=== PATIENT | male | born 1965 | race Caucasian/White ===

== ENCOUNTER 2020-09-22 14:06 | Outpatient (CLI) | payer OTHER, SELFPAY ==
--- NOTE | ~2020-09-22 | XR_ITS ---
EXAMINATION: XR knee LT 2V DATE: 09/22/2020 14:27 INDICATION: Chronic left knee pain. TECHNIQUE: 2 views of left knee were obtained. COMPARISON: None. FINDINGS: Bone alignment is normal. No fracture. There is mild osteoarthritis of medial and patellofe moral compartments. There is a small knee joint effusion. IMPRESSION: 1. Mild left knee osteoarthritis. 2. Small left knee joint effusion. Reviewed, dictated and finalized at location A.
--- NOTE | ~2020-09-22 | XR_ITS ---
EXAMINATION: XR hand LT 2V DATE: 09/22/2020 14:27 INDICATION: Localized left hand swelling, mass and lump at the palmar aspect of the distal third and fourth metacarpals. TECHNIQUE: Posteroanterior and lateral views of the left hand were obtained. COMPARISON: None. FINDINGS: Alignment is normal. No fracture. Joint space narrowing at the third and fourth carpals and multiple interphalangeal joints. The joint space narrowing at the third and fourth metacarpophalangeal joints appears relatively uniform is an atypical distribution for osteoarthritis and suggests the possibilit y of inflammatory arthritis such as rheumatoid. No erosions or periosteal reaction. Soft tissues are unremarkable. No radiopaque foreign bodies. IMPRESSION: 1. Atypical distribution of relatively uniform joint space narrowing at the third and fourth metacarp ophalangeal joints which raises possibility of inflammatory arthritis such as rheumatoid. Reviewed, dictated and finalized at location A. IMPRESSION: 1. Atypical distribution of relatively uniform joint space narrowing at the thi rd and fourth metacarpophalangeal joints which raises possibility of inflammato ry arthritis such as rheumatoid.
== END 2020-09-22 14:07 | disposition home or self-care (01) ==
LOC: ANHIMG 14:13
PROVIDERS: PCP Family Medicine; Visit Provider Nurse Practitioner Family
DX: M25.462 Effusion, left knee (principal); M17.12 Unilateral primary osteoarthritis, left knee
CPT/HCPCS: 73120; 73560

== ENCOUNTER 2021-02-05 09:38 | Outpatient (CLI) | payer OTHER, SELFPAY ==
--- NOTE | ~2021-02-05 | MR_ITS ---
EXAMINATION: MR knee LT wo con DATE: 02/05/2021 10:47 INDICATION: Left knee pain. TECHNIQUE: Magnetic resonance imaging (MRI) of the left knee was performed without intravenous contra st. Sequences included axial PD-weighted FS FSE, coronal PD-weighted FSE and PD-weighted FS FSE, sagi ttal PD-weighted FSE, and sagittal T2-weighted FS FSE. COMPARISON: Left knee radiographs 09/22/2020 FINDINGS: Medial compartment: There is an undersurface horizontal tear of body and posterior horn of medial meniscus. There is cart ilage surface irregularity of femoral condyle and tibial condyle. Marginal osteophytes are noted. Lateral compartment: Lateral meniscus is normal. Lateral compartment cartilage is normal. There are tiny osteophytes. Patellofemoral compartment: There is shallow partial-thickness cartilage loss of patellar medial facet. There is deep partial thi ckness cartilage loss of central trochlea. Osteophytes are noted. Ligaments and tendons: The anterior and posterior cruciate ligaments are normal. Medial collateral ligament and lateral rosendo ateral ligament complex are intact. Patellar tendon is normal. Fluid: There is a small knee joint effusion. There is a moderate-sized Burns's cyst. IMPRESSION: 1. Moderate chondrosis of patellofemoral compartment and mild chondrosis of medial compartment. 2. Tear of medial meniscus. 3. Small knee joint effusion. 4. Moderate-sized Burns's cyst. Reviewed, dictated and finalized at location A. IMPRESSION: 1. Moderate chondrosis of patellofemoral compartment and mild chondrosis of med ial compartment. 2. Tear of medial meniscus. 3. Small knee joint effusion. 4. Moderate-sized Burns's cyst.
== END 2021-02-05 09:39 | disposition home or self-care (01) ==
PROVIDERS: PCP Family Medicine; Visit Provider Nurse Practitioner Family
DX: M25.462 Effusion, left knee (principal); R29.898 Other symptoms and signs involving the musculoskeletal system; S83.242A Other tear of medial meniscus, current injury, left knee, initial encounter; M71.22 Synovial cyst of popliteal space [Baker], left knee
CPT/HCPCS: 73721

== ENCOUNTER 2021-08-18 15:03 | Emergency (ER) | payer OTHER, SELFPAY ==
[2021-08-18 15:13] VITALS: BP 179/96; PULSE 82; RESP 16; TEMP 36.3; O2SAT 99
--- NOTE | 2021-08-18 15:17 | ED.URI ---
HPI - URI/Sore Throat General Chief Complaint: Upper Respiratory Infection Stated Complaint: uri Time Seen by Provider: 08/18/21 15:18 Source: patient and RN notes reviewed Mode of arrival: ambulatory Limitations: no limitations History of Present Illness HPI Narrative: 56-year-old male presented for complaint of cold symptoms for the last 4 days. He endorses a sore throat, postnasal drainage and associated cough. He states NyQuil has been helping with congestion but is requesting something stronger to help with the sore throat. He endorses his was sick with GI virus. He is not boosted for COVID, has not had a flu shot. Denies chest pain, shortness of breath, wheezing, nausea, vomiting, diarrhea, fever or chills. MD elicited complaint: cough Related Data Home Medications Medication Instructions Recorded Confirmed No Home Medications 02/24/21 02/24/21 Allergies Allergy/AdvReac Type Severity Reaction Status Date / Time No Known Allergies Allergy Verified 09/16/20 08:55 Review of Systems Review of Systems: CONSTITUTIONAL: Denies malaise, chills, sweats, fever EYES: Denies visual changes, redness, or discharge ENT: Reports rhinorrhea, congestion, sinus pain, otalgia, sore throat CARDIOVASCULAR: Denies chest pain, palpitations, edema RESPIRATORY: Reports cough, post nasal drainage. 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 TM pearly mao with dull light reflex bilaterally; no tragal tenderness. Oropharynx erythematous without lesions or exudate, no drooling, no hoarseness, no trismus, uvula midline. CHEST: Clear to auscultation, breath sounds equal. No wheezing, rhonchi, rales, or stridor. No respiratory distress, speaks in full sentences. HEART: Regular rate and rhythm. No murmur heard. SKIN: Warm, dry, no rash. NEURO: Alert and oriented x3. PSYCH: Normal mood and affect Course Course Emergency Course: Patient is aware of diagnosis, understands and agrees to treatment plan. Anticipatory guidance given. Patient agrees to follow-up as directed and is aware of reasons to seek care at the emergency department. Portions of this record may have been created with voice recognition software Level of Care: Express Care Visit Vital Signs Vital signs: Vital Signs Temperature 97.4 F L 08/18/21 15:13 Pulse Rate 82 08/18/21 15:13 Respiratory Rate 16 08/18/21 15:13 Blood Pressure 179/96 H 08/18/21 15:13 Pulse Oximetry 99 08/18/21 15:13 Temperature 97.4 F L 08/18/21 15:13 Pulse Rate 82 08/18/21 15:13 Respiratory Rate 16 08/18/21 15:13 Blood Pressure 179/96 H 08/18/21 15:13 Pulse Oximetry 99 08/18/21 15:13 reviewed MDM - URI/Sore Throat MDM Narrative Medical decision making narrative: Sx c/w URI. Pt will continue supportive treatment and f/u with pcp outpt. Differential Diagnosis Differential diagnosis: Likely upper respiratory infection, sinusitis and viral infection Discharge Plan Discharge Clinical Impression: Upper respiratory infection Qualifiers: URI type: unspecified URI Qualified Code(s): J06.9 - Acute upper respiratory infection, unspecifie
== END 2021-08-18 15:40 | disposition home or self-care (01) ==
PROVIDERS: Emergency Provider Nurse Practitioner Family
DX: J06.9 Acute upper respiratory infection, unspecified (principal)
CPT/HCPCS: 99211; G0463